=== PATIENT | female | born 1985 | race Caucasian/White ===

== ENCOUNTER 2021-07-30 16:35 | Emergency (ER) | payer BC ==
[2021-07-30 17:32] LABS: HEMOGLOBIN 15.1 gm/dl (12.3-15.3); RED BLOOD COUNT 4.7 M/UL (4.00-5.10); WHITE BLOOD COUNT 9.8 K/UL (4.5-11.0)
[2021-07-30 17:53] LABS: BUN/CREATININE RATIO 23 (0-10)
== END 2021-07-30 19:00 | disposition home or self-care (01) ==
LOC: ER1 16:35
PROVIDERS: Emergency Medicine
DX: R31.9 Hematuria, unspecified (principal); I10 Essential (primary) hypertension
CPT/HCPCS: 80053; 81001; 85025; 99283